=== PATIENT | male | born 1995 | race Asian ===

== ENCOUNTER 2017-08-04 05:25 | Emergency (ER) | payer OTHER ==
[2017-08-04] MEDS ORDERED: ALBUTEROL SO4 18 GM HFA INHALER IH ONE (05:31)
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
[2017-08-04 05:46] VITALS: BP 128/85; PULSE 72; TEMP 98.7; BMI 23.6
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
[2017-08-04] MEDS ORDERED: LIDOCAINE HCL 1%, 10 MG/ML (20ML VIAL) ONE (11:52)
[2017-08-04] MEDS ORDERED: morphine CARPU-JECT 2 MG/1 ML DISP.SYRIN IM ONE (12:01)
[2017-08-04] MEDS ORDERED: ONDANSETRON 4 MG TABLET PO ONE (12:03)
[2017-08-04] MEDS ORDERED: ONDANSETRON *ODT* 4 MG TABLET ONE (12:10)
[2017-08-04] MEDS ORDERED: morphine SULFATE 4 MG/ML VIAL ONE (12:10)
== END 2017-08-04 14:43 | disposition home or self-care (01) ==
LOC: JER 05:25
PROC: 3E023NZ Introduction of Analgesics, Hypnotics, Sedatives into Muscle, Percutaneous Approach (ICD-10-PCS; principal; 2017-08-04)
DX: S52.591A Other fractures of lower end of right radius, initial encounter for closed fracture (principal); S00.81XA Abrasion of other part of head, initial encounter; V47.5XXA Car driver injured in collision with fixed or stationary object in traffic accident, initial encounter; Y92.488 Other paved roadways as the place of occurrence of the external cause; Y93.89 Activity, other specified; Y99.8 Other external cause status
CPT/HCPCS: 70450-TC; 71010-TC; 72125-TC; 72170-TC; 73070-TC-RT; 73090-TC-RT; 73110-TC-RT; 99284-25